=== PATIENT | male | born 1975 | race Caucasian/White ===

== ENCOUNTER 2017-12-15 11:55 | Day surgery (SDC) | payer BC ==
[~2017-12-15 11:55] MED LIST: Lactated Ringers 1,000 ML IV SCH; Midazolam 1 MG/ML 2 ML SDV ONE; Propofol 200 MG/20 ML SDV ONE
--- NOTE | 2017-12-15 12:33 | PCM.PREANE ---
Preanesthetic Assessment - Anesthesia/Transfusion/Family Hx Anesthesia History: Prior Anesthesia Without Reaction Family History of Anesthesia Reaction: No Transfusion History: No Prior Transfusion(s) - Review of Systems General: No Symptoms Pulmonary: No Symptoms Cardiovascular: No Symptoms Gastrointestinal: Difficulty Swallowing Neurological: No Symptoms Other: Reports: None - Physical Assessment NPO Status Date: 12/14/17 O2 Sat by Pulse Oximetry: 97 Respiratory Rate: 16 Vital Signs: Last Vital Signs Temp 36.5 C 12/15/17 12:14 Pulse 68 12/15/17 12:14 Resp 16 12/15/17 12:14 BP 169/84 H 12/15/17 12:14 Pulse Ox 97 12/15/17 12:14 Height: 1.78 m Weight: 107.501 kg ASA Class: 2 Mental Status: Alert & Oriented x3 Dentition: Reports: Normal Dentition ROM/Head Extension: Full Lungs: Clear to Auscultation, Normal Respiratory Effort Cardiovascular: Regular Rate, Regular Rhythm - Allergies Allergies/Adverse Reactions: Allergies Allergy/AdvReac Type Severity Reaction Status Date / Time latex Allergy Rash Verified 12/10/17 15:19 bananas Allergy Cannot Uncoded 12/10/17 15:19 Remember bee stings Allergy Rash Uncoded 12/10/17 15:19 - Anesthesia Plan Pre-Op Medication Ordered: None - Acknowledgements Anesthesia Type Planned: MAC Pt an Appropriate Candidate for the Planned Anesthesia: Yes Alternatives and Risks of Anesthesia Discussed w Pt/Guardian: Yes Pt/Guardian Understands and Agrees with Anesthesia Plan: Yes Additional Comments: PMH: exercise induced asthma, hx of esophageal stricture and prior dilitations. PreAnesthesia Questionnaire HEENT History: Reports: Other (See Below) Other HEENT History: wears glasses/contacts Cardiovascular History: Reports: Heart Murmur Respiratory History: Reports: Asthma Other Respiratory History: exercised induced- rarely uses inhaler Gastrointestinal History: Reports: Other (See Below) Other Gastrointestinal History: hx of esophageal stricture Musculoskeletal History: Reports: Fracture Other Musculoskeletal History: hx of fx nose Endocrine/Metabolic History: Reports: Obesity/BMI 30+ - Past Surgical History HEENT Surgical History: Reports: Other (See Below) Other HEENT Surgeries/Procedures: hx of fx nose as a child GI Surgical History: Reports: EGD Other GI Surgeries/Procedures: multiple EGD's with FB removal, also dilatation - SUBSTANCE USE Smoking Status *Q: Never Smoker Recreational Drug Use History: No - HOME MEDS Home Medications: Home Meds Albuterol [Ventolin HFA] 2 puff INH QID PRN 12/10/17 [History] Multivitamin [Multiple Vitamins] 1 tab PO DAILY 12/10/17 [History] - CURRENT (IN HOUSE) MEDS Current Meds: Current Medications Lactated Ringer's (Ringers, Lactated) 1,000 mls @ 125 mls/hr IV ASDIRECTED REG Last Admin: 12/15/17 12:09 Dose: 125 mls/hr Discontinued Medications Midazolam HCl (Versed 1 Mg/Ml) Confirm Administered Dose 2 mg .ROUTE .STK-MED ONE Stop: 12/15/17 07:33 Propofol (Diprivan 20 Ml) Confirm Administered Dose 200 mg .ROUTE .STK-MED ONE Stop: 12/15/17 07:33
[2017-12-15] MEDS ORDERED: Propofol 200 MG/20 ML SDV ONE ×3 (12:51→12:59)
--- NOTE | 2017-12-15 13:23 | PCM.OPNOTE ---
- General Post-Op/Procedure Note Date of Surgery/Procedure: 12/15/17 Operative Procedure(s): Esophagogastroduodenoscopy with biopsy of the stomach and balloon dilatation of the esophageal stricture to 54 Turkmen. Pre Op Diagnosis: Esophageal stricture. Progressive dysphagia. Post-Op Diagnosis: Esophageal stricture. Gastritis and duodenitis. Anesthesia Technique: MAC (ASA II) Primary Surgeon: Vladimir Mcintosh Condition: Good Free Text/Narrative:: DICTATION [id number] CPT CODE [id number]
[2017-12-15] MEDS ORDERED: Lactated Ringers 1,000 ML IV SCH (13:30)
--- NOTE | 2017-12-15 13:35 | PCM.POSTAN ---
POST ANESTHESIA ASSESSMENT - MENTAL STATUS Mental Status: Alert, Oriented - RESPIRATORY Respiratory Status: Respiratory Rate WNL, Airway Patent, O2 Saturation Stable - CARDIOVASCULAR CV Status: Pulse Rate WNL, Blood Pressure Stable - GASTROINTESTINAL GI Status: No Symptoms - POST OP HYDRATION Hydration Status: Adequate & Stable
--- NOTE | 2017-12-15 13:36 | PCM48HPAN ---
Post Anesthesia Note - EVALUATION WITHIN 48HRS OF ANESTHETIC Vital Signs in Normal Range: Yes Patient Participated in Evaluation: Yes Respiratory Function Stable: Yes Airway Patent: Yes Cardiovascular Function Stable: Yes Hydration Status Stable: Yes Pain Control Satisfactory: Yes Nausea and Vomiting Control Satisfactory: Yes Mental Status Recovered: Yes Resp Rate: 11
--- NOTE | 2017-12-15 15:38 | OR ---
SURGEON: Vladimir Mcintosh M.D. DATE OF PROCEDURE: 12/15/2017 OPERATIONS PERFORMED: Esophagogastroduodenoscopy with gastric biopsies and dilatation of esophageal stricture to equivalent of 54-Mongolian dilator. ANESTHESIA: MAC. ASA CLASSIFICATION: II. PREOPERATIVE DIAGNOSIS: History of esophageal stricture with progressive solid food dysphagia. POSTOPERATIVE DIAGNOSIS: Esophageal stricture at 48 cm. DESCRIPTION OF PROCEDURE: The patient was taken to the endoscopy room and positioned on the endoscopy table in the supine position. Time-out was called for appropriate identification of the patient and procedure. Monitored anesthesia care was provided. The gastroscope was inserted through the bite block into the oropharynx and advanced to the esophageal stricture. I was able to maneuver the gastroscope beyond the stricture, but you could easily feel the stricture. The scope was then introduced into the stomach and subsequently into the duodenum where examination was carried out in a retrograde fashion. The duodenum does show some [id number] duodenitis. The stomach shows [id number] gastritis. Antral biopsies were obtained to look for the presence of Helicobacter pylori. The gastroscope was retroflexed to visualize the proximal stomach. No ulcers were noted in the proximal stomach. The gastroscope was then slowly withdrawn through the GE junction, which is widely patent. At approximately 48 cm from the incisors, a stricture is identified. I was able to dilate the stricture using a balloon dilator to 18 mm/54-Mongolian. Multiple dilatations were carried out to try and expand this as much as possible. A total of 3 to 4 dilatations at 18 mm was completed. The gastroscope was then easily advanced through the strictured area back into the stomach with no difficulties. The scope was then slowly withdrawn carefully visualizing the remainder of the esophagus. As the patient was getting light, we did not attempt to visualize the vocal cords to avoid any laryngospasm. The gastroscope was then removed with the patient having tolerated the procedure well. He was taken to recovery room in stable condition. MARIA ESTHER / NEGAR /[id number]
== END 2017-12-15 14:01 | disposition home or self-care (01) ==
LOC: MW.SDS 11:55
PROVIDERS: ATTEND Surgery
DX: K22.2 Esophageal obstruction (principal); K29.80 Duodenitis without bleeding; K29.70 Gastritis, unspecified, without bleeding; J45.909 Unspecified asthma, uncomplicated; E66.9 Obesity, unspecified; Z68.34 Body mass index [BMI] 34.0-34.9, adult; Z79.899 Other long term (current) drug therapy; Z91.040 Latex allergy status; Z91.030 Bee allergy status; Z91.018 Allergy to other foods; Z98.890 Other specified postprocedural states
CPT/HCPCS: 43239; 43249; J2250; J7120; 88305; 88312; J2704